=== PATIENT | male | born 2000 | race Caucasian/White ===

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

== ENCOUNTER 2019-08-27 03:40 | Emergency (ER) | payer OTHER ==
[~2019-08-27] VITALS: Ht 177.8 cm; Wt 65.9 kg
[~2019-08-27 03:40] MED LIST: ALBU8HFA4 IH; BECL8.7A6 PUFF
[2019-08-27 04:22] VITALS: BP 132/80
[2019-08-27] MEDS ORDERED: ALBUTEROL SULFATE 2.5 MG/0.5 ML NEB SOLUTION NEB ONE (04:30)
[2019-08-27] MEDS ORDERED: IPRATROPIUM BROMIDE 0.5 MG/2.5 ML NEB SOLUTION NEB ONE (04:30)
[2019-08-27] MEDS ORDERED: DEXAMETHASONE 4 MG TABLET PO ONE (05:00)
[2019-08-27] MEDS ORDERED: PredniSONE 20 MG TABLET PO ONE (05:00)
[2019-08-27 05:10] LABS: INFLUENZA TYPE A NEGATIVE FOR TYPE A (NEGATIVE); INFLUENZA TYPE B NEGATIVE FOR TYPE B (NEGATIVE)
[2019-08-27] MEDS ORDERED: IBUPROFEN 400 MG TABLET PO ONE (05:15)
[2019-08-27] MEDS ORDERED: ACETAMINOPHEN 325 MG TABLET PO ONE (05:15)
== END 2019-08-27 05:37 | disposition home or self-care (01) ==
LOC: EMS 03:43
DX: J45.901 Unspecified asthma with (acute) exacerbation (principal); Z79.899 Other long term (current) drug therapy
CPT/HCPCS: 71046; 87804; 94640; 99284; J8540; 94060